=== PATIENT | female | born 1955 | race Caucasian/White ===

== ENCOUNTER 2017-11-28 14:46 | Emergency (ER) | payer OTHER, SELFPAY ==
[2017-11-28 14:47] VITALS: BP 106/72; PULSE 59; RESP 20; TEMP 36.1; O2SAT 98; BMI 25.0
--- NOTE | 2017-11-28 15:05 | CT_ITS ---
STUDY: CT ABDOMEN AND PELVIS WITH CONTRAST REASON FOR EXAM: Female, 62 years old. Left rib pain status post fall. Pleuritic pain. RADIATION DOSAGE (If Supplied By Facility): CTDIvol = ( 13.67 ) mGy, DLP = ( 1182.40 ) mGycm TECHNIQUE: Transaxial images were obtained from the dome of the diaphragm to the symphysis pubis without oral contrast. 100CC ml of Isovue 300 contrast was administered. Sagittal and coronal images were reconstructed. Individualized dose optimization techniques were used for this CT. COMPARISON: None. FINDINGS: The visualized lung bases are unremarkable. The visualized portions of the heart are within normal limits. Normal liver. Normal gallbladder and extrahepatic biliary system. Normal spleen. Normal pancreas. Normal bilateral adrenal glands. Renal hypodensities measure up to 1 cm. These are too small to characterize. A suspected 1.2 cm laceration is noted in the lower pole of the left kidney seen on series 2 image 52. There is no involvement of the renal hilum. No demonstrated involvement of the collecting system. There is mild free fluid in the left upper quadrant, retroperitoneum, left perinephric space and left paracolic gutter. There is no bowel obstruction or inflammatory change. Stool burden is low to moderate. There is no free air or hematoma. Normal urinary bladder. Normal abdominal wall. There is a nondisplaced fracture of the left posterior 12th rib. There is a displaced fracture of the left posterior 11th rib. There is an equivocal nondisplaced fracture of the left posterolateral 10th rib. There are mild degenerative changes of the thoracolumbar spine. Bony structures are otherwise unremarkable. CT/Abdomen/Pelvis WITH Contrast IMPRESSION: 1. Left 11th and 12th rib fractures. Equivocal left 10th rib fracture. 2. A 1.2 cm left renal laceration. 3. Mild free fluid in the left upper quadrant. Dr. Meza discussed the findings with Dr. Viveros at 6:04 PM. N.B. : The above information has been verbally conveyed by Nidhi Meza MD to CARLOS Whitman, on 11/28/2017 18:04:38 (ET). Electronically Signed: Nidhi Meza MD at 18:04 EDT Tel , Service support ,
[2017-11-28] MEDS: Morphine 4 MG/ML Syringe IV (15:11)
--- NOTE | 2017-11-28 15:12 | ED.VISSUMM ---
- ER Visit Summary Date of Service: 11/28/17 Chief Complaint: Fall History of Present Illness: The patient is a 62 F who presents after a fall that occurred just prior to arrival. Patient fell down approximately 5-6 steps. Patient states she has pain over her left side and abdomen. Patient denies any head injury or loss of consciousness. Patient was able to ambulate immediately. Patient admits to some nausea but denies any vomiting. Patient denies any dysuria or hematuria but has not urinated the fall. Patient denies any paresthesias or weakness. Physical Examination: Vital signs are stable. Patient is afebrile. Patient is in no acute distress. Oral mucosa is pink and moist. Neck is supple. Heart was regular rate and rhythm. Lungs are clear and equal bilaterally. There is tenderness of the left lower chest. Abdomen is soft. Bowel sounds are normal. There is diffuse tenderness over the abdomen. There is some voluntary guarding. There is no rebound noted. Musculoskeletal exam shows good range of motion in all extremities. There are no deformities noted. Cranial nerves II through XII are intact. There are no focal motor or sensory deficits noted. The remaining physical exam is within normal limits. Test Results: CBC, comprehensive metabolic profile, and urinalysis were obtained. There is some hematuria noted with 50-100 red blood cells. Potassium was slightly low at 3.2. CT scan of the abdomen and pelvis was obtained. There is a 1.2 cm left renal laceration with some free fluid in the left upper quadrant. There are also fractures of the left 11th and 12th ribs and a possible fracture of the left 10th rib. Emergency Department Course and Treatment: Patient was given morphine, Zofran, and Phenergan here. Patient felt better on reevaluation. Case was discussed with Dr. Logan at [facility]. Patient will be transferred there for trauma evaluation. Disposition: Transferred to [facility] Impression: 1. Left renal laceration 2. Left 11th and 12th rib fractures This note was generated with [employer] dictation software. It may contain incorrect words, spelling, and punctuation that were not noted in review of the chart prior to signing ED Disposition - Plan for ED Patient: Disposition: [facility] Chief Complaint: Fall Diagnosis: Laceration of left kidney measuring 1-3 centimeters, Ribs, multiple fractures Referrals: Wilber Hawkins III, MD [Primary Care Provider] -
--- NOTE | 2017-11-28 15:15 | ED.DCSUM_ITS ---
- ER Visit Summary Date of Service: 11/28/17 Chief Complaint: Fall History of Present Illness: The patient is a 62 F who presents after a fall that occurred just prior to arrival. Patient fell down approximately 5-6 steps. Patient states she has pain over her left side and abdomen. Patient denies any head injury or loss of consciousness. Patient was able to ambulate immediately. Patient admits to some nausea but denies any vomiting. Patient denies any dysuria or hematuria but has not urinated the fall. Patient denies any paresthesias or weakness. Physical Examination: Vital signs are stable. Patient is afebrile. Patient is in no acute distress. Oral mucosa is pink and moist. Neck is supple. Heart was regular rate and rhythm. Lungs are clear and equal bilaterally. There is tenderness of the left lower chest. Abdomen is soft. Bowel sounds are normal. There is diffuse tenderness over the abdomen. There is some voluntary guarding. There is no rebound noted. Musculoskeletal exam shows good range of motion in all extremities. There are no deformities noted. Cranial nerves II through XII are intact. There are no focal motor or sensory deficits noted. The remaining physical exam is within normal limits. Test Results: CBC, comprehensive metabolic profile, and urinalysis were obtained. There is some hematuria noted with 50-100 red blood cells. Potassium was slightly low at 3.2. CT scan of the abdomen and pelvis was obtained. There is a 1.2 cm left renal laceration with some free fluid in the left upper quadrant. There are also fractures of the left 11th and 12th ribs and a possible fracture of the left 10th rib. Emergency Department Course and Treatment: Patient was given morphine, Zofran, and Phenergan here. Patient felt better on reevaluation. Case was discussed with Dr. Logan at [facility]. Patient will be transferred there for trauma evaluation. Disposition: Transferred to [facility] Impression: 1. Left renal laceration 2. Left 11th and 12th rib fractures This note was generated with [employer] dictation software. It may contain incorrect words, spelling, and punctuation that were not noted in review of the chart prior to signing ED Disposition - Plan for ED Patient: Disposition: [facility] Chief Complaint: Fall Diagnosis: Laceration of left kidney measuring 1-3 centimeters, Ribs, multiple fractures Referrals: Wilber Hawkins III, MD [Primary Care Provider] -
[2017-11-28 15:19] LABS: Absolute Lymphocyte Count 2.52 X10^3/ul (0.83-4.51); Absolute Neutrophil Count 5.1 X10^3/uL (2.0-7.7); Basophil# 0.03 X10^3/uL; Basophil% 0.4 % (0-1); Eosinophil# 0.19 X10^3/uL; Eosinophils% 2.2 % (0-5); Hematocrit 40.8 % (37-47); Hemoglobin 13.3 g/dl (12.0-15.0); Lymphocyte # 2.52 X10^3/ul (4.0); Lymphocyte % 29.6 % (19-41); Mean Corp Hgb Conc 32.6 g/gl (32-36); Mean Corpuscular Hgb 29.6 pg (27.0-32.0); Mean Corpuscular Volume 90.9 fL (81-99); Mean Platelet Vol. 9.7 fl (6.2-12.0); Monocyte# 0.65 X10^3/uL; Monocyte% 7.6 % (0-10); Neutrophil # 5.08 X10^3/uL (2.7-7.7); Neutrophil % 59.8 % (47-70); Platelet Count 232 K/mm3 (150-450); RBC Distribution Width CV 13.1 % (11.6-14.6); RBC Distribution Width SD 43.1 fl (35.1-43.9); Red Blood Count 4.49 M/mm3 (4.2-5.4); White Blood Count 8.5 K/mm3 (4.4-11.0)
[2017-11-28 15:20] LABS: POSITIVE COUNT NO; POSITIVE DIFFERENTIAL NO; POSITIVE MORPHOLOGY NO
--- NOTE | 2017-11-28 15:25 | RAD_ITS ---
STUDY: X-RAY CHEST REASON FOR EXAM: Female, 62 years old. Left anterior lower chest pain. TECHNIQUE: AP and lateral views. COMPARISON: None. FINDINGS: The lungs are clear and expanded. There is no demonstrated pleural abnormality. Normal size heart. Normal mediastinum and rj. Normal visualized pulmonary arteries. Normal visualized aortic arch and descending thoracic aorta. Normal visualized thoracic spine. Normal visualized ribs, clavicles, and shoulders. There is no demonstrated abnormality of the visualized soft tissue structures of the upper abdomen. RAD/Chest PA and Lateral IMPRESSION: Normal x-ray examination of the chest. Electronically Signed: Nidhi Meza MD at 16:29 EDT Tel , Service support ,
[2017-11-28 15:28] LABS: AST(SGOT) 16 U/L (15-37); Alanine Aminotransfer ALT/SGPT 20 U/L (13-56); Albumin, Serum 3.8 g/dL (3.2-5.0); Alkaline Phosphatase 106 U/L (45-117); Anion Gap 7 (5-15); BUN 19 mg/dL (7-18); BUN/Creat Ratio 20.7 RATIO (10-20); Chloride 106 mmol/L (98-107); Creatinine, Serum 0.92 mg/dL (0.55-1.02); EST Glomerular Filtration Rate 65 mL/min (>60); Est Glom Filt Rate - Afr Amer 79 mL/min (>60); Estimated Creatinine Clearance 55.59 ml/min; Globulin 3.9 g/dL (2.2-4.2); Glucose 127 mg/dL (74-106); Potassium 3.2 mmol/L (3.5-5.1); Protein, Total 7.7 g/dL (6.4-8.2); Sodium Level 140 mmol/L (136-145)
[2017-11-28] MEDS: Ondansetron 4 MG/2 ML Vial IV (15:47)
[2017-11-28 16:26] LABS: Bacteria 0 SEEN /hpf (None Seen); Mucous, Urine 0 SEEN /hpf (<or=2+); White Blood Cells 0 SEEN /hpf (0-5)
[2017-11-28 16:28] LABS: Color, Urine Yellow (Yellow); Glucose, Dipstick Normal (Normal); Ketone-Dipstick 15 mg/dl (Negative); Leukocyte Esterase-Dipstick Negative /ul (Negative); Nitrite-Dipstick Negative (Negative); Occult Blood-Urine 250 /ul (Negative); Protein-Dipstick 30 mg/dl (Negative); Urine Bilirubin Dipstick Negative (Negative); Urine Clarity Cloudy (Clear); Urine Urobilinogen Normal (Normal)
[2017-11-28 16:40] LABS: Red Blood Cells-Urine 50-100 SEEN /hpf (0-5); Squamous Epithelial Cells - UA 0-5 SEEN /hpf (5-10)
[2017-11-28] MEDS: proMETHazine 25 MG/ML Syringe 6.25 MG IV (16:49)
[2017-11-28] MEDS: Morphine 2 MG/ML Syringe IV (18:50)
[2017-11-28 18:52] VITALS: BP 119/68; PULSE 72; RESP 18; O2SAT 97
[2017-11-28 19:59] VITALS: PULSE 68; RESP 18
== END 2017-11-28 20:02 | disposition short-term general hospital (02) ==
PROVIDERS: Emergency Provider Emergency Medicine; Family Provider Family Medicine; PCP Family Medicine
DX: S37.052A Moderate laceration of left kidney, initial encounter (principal); S22.42XA Multiple fractures of ribs, left side, initial encounter for closed fracture; W10.9XXA Fall (on) (from) unspecified stairs and steps, initial encounter; Y93.9 Activity, unspecified
CPT/HCPCS: 71046; 74177; 80053; 81001; 85025; 96374; 96375; 96376; 99284; Q9967; A4216; J2405

== ENCOUNTER → 2019-04-18 08:09 | Outpatient (CLI) | payer MEDICARE, SELFPAY ==
--- NOTE | 2019-04-18 08:11 | RAD_ITS ---
PROCEDURE: SMALL BOWEL SERIES DATE OF EXAMINATION: April 18, 2019. INDICATION: Female, 63 years old. Generalized abdominal pain. PHYSICIAN: Lazaro Mckeon M.D. FLUOROSCOPY TIME (if supplied): (0:06) minutes/seconds TECHNIQUE: Radiographic and fluoroscopic images were taken of the small intestine following the ingestion of barium. COMPARISON: None. FINDINGS: A preliminary supine KUB was obtained. A large amount of fecal material is seen in the colon. Phleboliths are present within the pelvis. The lung bases are unremarkable. The osseous structures are normal. The patient orally ingested approximately 12 ounces of thin barium Normal visualized fundus, body, and antrum of the stomach. Normal duodenal bulb, C-loop, and proximal jejunum. Normal visualized mucosal folds of the jejunum and ileum. There are no demonstrated dilatations, strictures, or masses of the small intestine. There is no mass displacement of the loops of small intestine. There is a normal motor pattern with barium reaching the colon within approximately 60 minutes. Spot films under fluoroscopic observation demonstrated a normal terminal ileum and ileocecal valve. RAD/Small Bowel Series Only IMPRESSION: Normal small bowel series. Electronically Signed: Lazaro Mckeon, at 10:18 EST , Service support ,
== END ==
PROVIDERS: PCP Family Medicine; Referring Provider Nurse Practitioner Adult Health; Visit Provider Nurse Practitioner Adult Health
DX: R10.84 Generalized abdominal pain (principal)
CPT/HCPCS: 74250

== ENCOUNTER 2020-04-23 16:31 | Outpatient (RCR) | payer MEDICARE, SELFPAY ==
[2020-04-23] MEDS: COVID-19 VACC, MRNA(PFIZER)/PF 30 MCG/0.3 ML SYRINGE IM (09:22)
[2020-05-14] MEDS: COVID-19 VACC, MRNA(PFIZER)/PF 30 MCG/0.3 ML SYRINGE IM (09:00)
== END 2020-07-23 23:59 ==
LOC: IMMUN 16:31
PROVIDERS: PCP Family Medicine; Visit Provider Family Medicine
DX: Z23 Encounter for immunization (principal)
CPT/HCPCS: 0001A; 0002A; 91300

== ENCOUNTER → 2022-12-23 | Outpatient (CLI) | payer MEDICARE, SELFPAY ==
--- NOTE | 2022-12-23 08:20 | EKG12_ITS ---
Test Reason : PRE-OP Blood Pressure : / mmHG Vent. Rate : 060 BPM Atrial Rate : 060 BPM P-R Int : 000 ms QRS Dur : 078 ms QT Int : 398 ms P-R-T Axes : 039 027 052 degrees QTc Int : 398 ms Sinus rhythm with A-V dissociation and Junctional rhythm Abnormal ECG Confirmed by ROLANDO ROGERS, SANTIAGO ([id number]), medical editor NAS SMITH ([id number]) on 12/28/2022 8:37:49 AM Referred By: Jaya Pollard Confirmed By:DANNY MARSHALL MD
[2022-12-23 09:03] LABS: Hematocrit 43.3 % (37-47); Hemoglobin 14.4 g/dL (12.0-15.0); Mean Corp Hgb Conc 33.3 g/dL (32-36); Mean Corpuscular Volume 93.1 fL (81-99); Mean Platelet Vol. 9.7 fl (6.2-12.0); Platelet Count 209 K/mm3 (150-450); RBC Distribution Width CV 12.6 % (11.6-14.6); RBC Distribution Width SD 43.1 fl (35.1-43.9); Red Blood Count 4.65 M/mm3 (4.2-5.4); White Blood Count 5.2 K/mm3 (4.4-11.0)
[2022-12-23 09:29] LABS: Anion Gap -1 (5-15); BUN 17 mg/dL (7-18); BUN/Creat Ratio 23.8 RATIO (10-20); Calcium,Total 9.7 mg/dL (8.5-10.1); Chloride 108 mmol/L (98-107); Creatinine, Serum 0.72 mg/dL (0.55-1.02); EST Glomerular Filtration Rate 86 mL/min (>60); Est Glom Filt Rate - Afr Amer 104 mL/min (>60); Glucose 100 mg/dL (74-106); Potassium 5.1 mmol/L (3.5-5.1); Sodium Level 140 mmol/L (136-145)
== END | disposition home or self-care (01) ==
PROVIDERS: PCP Internal Medicine; Referring Provider Surgery; Visit Provider Surgery
DX: Z01.810 Encounter for preprocedural cardiovascular examination (principal)
CPT/HCPCS: 36415; 80048; 85027; 93005